=== PATIENT | male | born 1990 | race Asian ===

== ENCOUNTER 2016-09-17 19:43 | Emergency (ER) | payer OTHER ==
[2016-09-17 19:57] VITALS: RESP 16
--- NOTE | 2016-09-17 20:08 | EDPHY ---
H & P Time Seen by Provider: 09/17/16 20:02 HPI/ROS: CHIEF COMPLAINT: Dizziness HISTORY OF PRESENT ILLNESS: The patient is a 25-year-old male presenting with dizziness. While walking to his car yesterday he developed sudden onset of a spinning sensation. The spinning sensation increases with change in position and head movement. Associated with 1 episode of vomiting. He woke up this morning with left leg and left arm numbness which lasted for about 5 minutes and resolved. Today the patient felt intermittent dizziness with nausea. He is asymptomatic now. No denies recent illness. No recent head or neck trauma. The patient is not on any medications. REVIEW OF SYSTEMS: A comprehensive 10 point review of systems is otherwise negative aside from elements mentioned in the history of present illness. Past Medical/Surgical History: Denies. Social History: Cigarette smoker. Smoking Status: Light smoker Physical Exam: General Appearance: Alert, pleasant Eyes: Pupils equal and round, no conjunctival pallor or injection, no nystagmus ENT, Mouth: Mucous membranes moist Neck: Normal inspection Respiratory: Lungs are clear to auscultation Cardiovascular: Regular rate and rhythm Gastrointestinal: Abdomen is soft and non-tender Neurological: Alert, oriented x3, cranial nerves II through XII intact, motor 5/ 5, sensory intact to light touch, normal gait Skin: Warm and dry, no rash Extremities: Nontender, no pedal edema Psychiatric: Mood and affect normal Constitutional: Initial Vital Signs Temperature (C) 37.4 C 09/17/16 19:51 Heart Rate 73 09/17/16 19:51 Respiratory Rate 16 09/17/16 19:51 Blood Pressure 141/90 H 09/17/16 19:51 O2 Sat (%) 98 09/17/16 19:51 O2 Delivery Mode Room Air Allergies/Adverse Reactions: Penicillins Allergy (Verified 09/17/16 19:57) Rash Sulfa (Sulfonamide Antibiotics) Allergy (Verified 09/17/16 19:57) Rash Home Medications: Medication Instructions Recorded Meclizine HCl [Meclizine HCl 25 mg 25 mg PO TID PRN #15 tab 09/17/16 (RX,OTC)] Medical Decision Making ED Course/Re-evaluation: This patient presents with vertigo, most likely peripheral in etiology, given young age, positional changes and intermittent symptoms. I suspect the left- sided paresthesias are not related to the vertigo med instead because of anxiety and possibly sleeping on his left side. He has not had further neurologic symptoms since getting out of bed this morning. However, because of the transient numbness, I will obtain a CT scan. CT imaging is normal. The patient remains asymptomatic. Plan to discharge home with Meclizine. Differential Diagnosis: Differential diagnosis includes TIA, stroke, intracranial hemorrhage, tumor, electrolyte abnormality and acute labyrinthitis. - Data Points Laboratory Results: Laboratory Results 09/17/16 20:27 09/17/16 20:27 Departure - Departure Disposition: Home, Routine, Self-Care Clinical Impression: Vertigo Condition: Good Instructions: Vertigo (ED) Additional Instructions: Take Meclizine as prescribed for dizziness. You have been referred to a primary care physician below, please followup as necessary. Referrals: Concetta Flores MD [Medical Doctor] - As per Instructions Prescriptions: Meclizine HCl [Meclizine HCl 25 mg (RX,OTC)] 25 mg PO TID PRN #15 tab PRN Reason: Dizziness Report Scribed for: Rosa Rodriguez Report Scribed by: Lesly Ang Date of Report: 09/17/16 Time of Report: 20:08 Physician Review and Approval Statement: 09/17/16 20:08 Portions of this note were transcribed by a medical administrative specialist. I personally performed the history, physical exam, and medical decision-making; and confirmed the accuracy of the information in the transcribed note.
[2016-09-17 20:37] LABS: % IMMATURE GRANULYOCYTES 0.1 % (0.0-1.1); ABSOLUTE IMMATURE GRANULOCYTES 0.01 10^3/uL (0.00-0.10); ADD DIFF? NO; ADD MORPH? NO; ADD SCAN? NO; ATYPICAL LYMPHOCYTE FLAG 10 (0-99); FRAGMENT RBC FLAG 0 (0-99); HEMATOCRIT 46.4 % (40.0-51.0); LEFT SHIFT FLG 0 (0-99); LIPEMIA HEMOLYSIS FLAG 90 (0-99); MEAN CELL HEMOGLOBIN 29.6 pg (27.9-34.1); MEAN CELL HEMOGLOBIN CONCENTR. 34.5 g/dL (32.4-36.7); MEAN CELL VOLUME 85.8 fL (81.5-99.8); MEAN PLATELET VOLUME 9.7 fL (8.7-11.7); PLATELET CLUMPS FLAG 0 (0-99); PLATELET COUNT 330 10^3/uL (150-400); RED BLOOD CELL COUNT 5.41 10^6/uL (4.40-6.38); RED CELL DISTRIBUTION WIDTH 12.8 % (11.5-15.2)
[2016-09-17 20:55] LABS: ANION GAP 11 mEq/L (8-16); CALCIUM 9.5 mg/dL (8.5-10.4); CARBON DIOXIDE 25 mEq/l (22-31); CHLORIDE 105 mEq/L (97-110); CREATININE 0.8 mg/dL (0.7-1.3); GLOMERULAR FILTRATION RATE > 60; GLUCOSE 87 mg/dL (70-100); POTASSIUM 4.6 mEq/L (3.5-5.2); SODIUM 141 mEq/L (134-144)
[2016-09-17 21:25] VITALS: BP 121/74; PULSE 66; TEMP 97.9; O2SAT 96
== END 2016-09-17 21:24 | disposition home or self-care (01) ==
DX: R42 Dizziness and giddiness (principal); F17.210 Nicotine dependence, cigarettes, uncomplicated

== ENCOUNTER 2017-05-19 21:27 | Emergency (ER) | payer OTHER ==
[2017-05-19 21:33] VITALS: BP 132/84; PULSE 88; RESP 20; TEMP 98.6; O2SAT 93
--- NOTE | 2017-05-19 22:05 | EDPHY ---
H & P Stated Complaint: upper swollen lip Time Seen by Provider: 05/19/17 22:02 HPI/ROS: HPI The patient presents with upper lip swelling which has been present for the last 2 days though became worse tonight after drinking a beer. He took a dose of Benadryl in the morning without any improvement in his symptoms. He has a history of similar about 9 months ago which improved on its own. He denies any tongue swelling difficulty breathing, difficulty swallowing, does not have any drooling. He says that he has not had any rash, vomiting, shortness of breath, dizziness. He has an allergy to penicillin which causes a rash. He denies any new medications, no [id number] medications. REVIEW OF SYSTEMS Constitutional: No fever, no chills. Eyes: No discharge. ENT: No sore throat. Cardiovascular: No chest pain, no palpitations. Respiratory: No cough, no shortness of breath. Gastrointestinal: No abdominal pain, no vomiting. Genitourinary: No hematuria. Musculoskeletal: No back pain. Skin: No rashes. Neurological: No headache. PMHx: Healthy Soc Hx: [employer] student PHYSICAL General Appearance: Alert, no distress Eyes: Pupils equal and round no pallor or injection ENT, Mouth: Upper lip is diffusely slightly edematous with no erythema, tongue is normal, uvula is midline, posterior pharynx is normal, Mucous membranes moist Respiratory: There are no retractions, lungs are clear to auscultation Cardiovascular: Regular rate and rhythm Gastrointestinal: Abdomen is soft and non-tender, no masses, bowel sounds normal Neurological: A&O, moves all extremities Skin: Warm and dry, no rashes Musculoskeletal: Neck is supple non tender Extremities: symmetrical, full range of motion Psychiatric: Patient is oriented X 3, there is no agitation Source: Patient Exam Limitations: No limitations - Medical/Surgical History Hx Asthma: No Hx Chronic Respiratory Disease: No Hx Diabetes: No Hx Cardiac Disease: No Hx Renal Disease: No Hx Cirrhosis: No Hx Alcoholism: No Hx HIV/AIDS: No Hx Splenectomy or Spleen Trauma: No Other PMH: recent 15 kg weight gain (08/2016) - Social History Smoking Status: Light smoker Constitutional: Initial Vital Signs Temperature (C) 37 C 05/19/17 21:30 Heart Rate 88 05/19/17 21:30 Respiratory Rate 20 05/19/17 21:30 Blood Pressure 132/84 H 05/19/17 21:30 O2 Sat (%) 93 05/19/17 21:30 O2 Delivery Mode Room Air Allergies/Adverse Reactions: Penicillins Allergy (Verified 05/19/17 21:30) Rash Sulfa (Sulfonamide Antibiotics) Allergy (Verified 05/19/17 21:30) Rash Home Medications: Medication Instructions Recorded Meclizine HCl [Meclizine HCl 25 mg 25 mg PO TID PRN #15 tab 09/17/16 (RX,OTC)] Medical Decision Making Differential Diagnosis: This is a 26-year-old male who presents with upper lip swelling for the last 2 days, worse after drinking a beer about 1 hr ago. On exam, he is well-appearing , he has very mild upper lip swelling. His vital signs are normal. He does not have any other signs of anaphylaxis. I feel he most likely is suffering from angioedema. The cause of it is unclear as he is not taking any new medications. He does not have a family history of this. I plan to refer him to allergy. Here I will give him a single dose of Decadron and Benadryl to take every 6 hr until he is feeling better. He is in agreement with this plan. Departure - Departure Disposition: Home, Routine, Self-Care Clinical Impression: Angioedema Qualifiers: Encounter type: initial encounter Qualified Code(s): T78.3XXA - Angioneurotic edema, initial encounter Condition: Good Instructions: Angioedema (ED) Additional Instructions: I recommend you take Benadryl 25 mg every 6 hr until your lip swelling improves. Below I have given you names of some local allergists that you could follow up with. Referrals: Ольга Jade MD [[facility] [place]] - As per Instructions Leobardo Mari MD [Medical Doctor] - As per Instructions
[2017-05-19] MEDS ORDERED: DEXAMETHASONE 10 MG/ML VIAL PO ONE (22:16)
[2017-05-19] MEDS ORDERED: diphenhydrAMINE 25 MG CAP PO ONE (22:16)
[2017-05-19] MEDS ORDERED: DEXAMETHASONE 4 MG TAB ONE (22:26)
[2017-05-19] MEDS ORDERED: DEXAMETHASONE 4 MG TAB PO ONE (22:27)
== END 2017-05-19 22:34 | disposition home or self-care (01) ==
DX: T78.3XXA Angioneurotic edema, initial encounter (principal); F17.200 Nicotine dependence, unspecified, uncomplicated
CPT/HCPCS: J1100